=== PATIENT | female | born 1990 | race Caucasian/White ===

== ENCOUNTER 2023-12-24 03:22 | Emergency (ER) | payer SELFPAY ==
[~2023-12-24] VITALS: Ht 182.9 cm; Wt 77.3 kg
[2023-12-24 04:10] VITALS: BP 131/81; PULSE 74; TEMP 98.3
== END 2023-12-24 04:10 | disposition home or self-care (01) ==
LOC: COL.ER 03:22
DX: S01.112A Laceration without foreign body of left eyelid and periocular area, initial encounter (principal); S60.212A Contusion of left wrist, initial encounter; Y04.0XXA Assault by unarmed brawl or fight, initial encounter